=== PATIENT | male | born 1995 | race Caucasian/White ===

== ENCOUNTER 2024-05-23 12:59 | Outpatient (AMB) | payer OTHER, SELFPAY ==
--- NOTE | 2024-05-23 13:09 | AM.OFFWIN_ITS ---
Intake Vital Signs 05/23/24 13:11 Height 5 ft 6 in Weight 190 lb BMI 30.7 BP 112/67 Blood Pressure Location Lt brachial Position Sitting Pulse 86 Pulse Source Pulse Oximeter Pulse Oximetry (%) 97 Oxygen Delivery Method Room Air Intake Visit Reasons: est/ pink eye? left eye Intake Note: [place] eye, left side Patient Tobacco Use Status: Never used Tobacco Allergies cefdinir [From Omnicef] Allergy (Mild, Verified 05/23/24 13:20) Unknown Medication List - Last Reconciled 05/23/24 by Aubree Whitfield [employer]IDEO [employer]ODUCTION [employer]INE[employer]- clonidine HCl 0.2 mg PO BID lamotrigine 100 mg PO BID Do you need a note to return to daycare/school/sports/work: No HPI HPI Comments History of Present Illness Details 28 y/o developmentally delayed, nonverba l M here today w/ Alvin Becker who reports residential program concerned for pink eye Staff noticed patient itching his eyes yesterday along with some redness. Alvin becker reports that he has noticed him rubbing both of his eyes and redness of both eyes since yesterday when he picked him up from the program. This morning there was crusting to his eyelids and lashes associated with watery drainage. Denies overt trauma or injury, fever, chills. Awake alert Exam technically difficult as patient is physically combative and the stepdad has to hold his hands, I was able to check for PERRLA which was normal, no lid edema Sclera and conjunctiva injected bilat I was not able to physically touched the patient during the exam Plan Given the physical exam in the history we will treat him with an antibiotic drop. He should stay home from his residential program for 24 hours. He can return on May 25. Note given to StepDad at time of visit If this does not improve the symptoms, they should return to the office or follow up with primary care for additional follow up. [facility] Social History Patient Tobacco Use Status: Never used Tobacco Physical Exam Vital Signs: Last Vital Signs Pulse 86 05/23/24 13:11 BP 112/67 05/23/24 13:11 Pulse Ox 97 05/23/24 13:11 Oxygen Delivery Method Room Air 05/23/24 13:11 BMI result Body Mass Index 30.7 Assessment & Plan Assessment & Plan (1) Bacterial conjunctivitis of both eyes: Code(s): H10.9 - Unspecified conjunctivitis; B96.89 - Other specified bacterial agents as the cause of diseases classified elsewhere Plan: , Plan , Medications: New polymyxin B sulf-trimethoprim 10,000 unit- 1 mg/mL APPLY TO BOTH EYES while awake; do not exceed 6 doses in 24 hours 1 drp ophthalmic (eye) QID 5 days 10 mL 0RF Patient Instructions: Plan Given the physical exam in the history we will treat him with an antibiotic drop. He should stay home from his residential program for 24 hours. He can return on May 25. Note given to StepDad at time of visit If this does not improve the symptoms, they should return to the office or follow up with primary care for additional follow up. Put cold or warm wet cloths on your eye a few times a day if the eye hurts. Do not wear contact lenses or eye makeup until the pink eye is gone. Throw away any eye makeup you were using when you got pink eye. Clean your contacts and storage case. Wash bed linen after 24 hours of antibiotic eye drop use. Do not share eye drops. Use a clean towel to wash your face each day until symptoms are gone. This will help prevent recurrence. What is pink eye? [place] eye is a term people use to describe an infection or irritation of the eye. The medical term for pink eye is conjunctivitis. If you have pink eye, your eye (or eyes) might: ?Turn pink or red ?Weep or ooze a gooey liquid ?Become itchy or burn ?Get stuck shut, especially when you first wake up [place] eye can be caused by an infection, allergies, or an unknown irritation. Can you catch pink eye from someone else? Yes. When pink eye is caused by an infection, it can spread easily. Usually, people catch it from touching something that has been in contact with an infected person's eye. It can also be spread when an infected person touches someone else, and then that person touches their eye. If someone you know has pink eye, avoid touching their pillowcases, towels, or other personal items. When should I see a doctor or nurse? See your doctor or nurse if your eye hurts, or if you still have trouble seeing clearly after blinking. If you do not have these problems, but think you might have pink eye, your doctor or nurse might be able to give you advice over the phone. Can pink eye be treated? Most cases of pink eye go away on their own without treatment. But some types of pink eye can be treated. When pink eye is caused by infection, it is usually caused by a virus, so antibiotics will not help. Still, pink eye caused by a virus can last several days. ?[place] eye caused by an infection with bacteria can be treated with antibiotic eye drops, gel, or ointment. ?[place] eye caused by other problems can be treated with eye drops normally used to treat allergies. These drops will not cure the pink eye, but they can help with itchiness and irritation. When using eye drops for infection, do not touch your healthy eye after touching your infected eye. Also, do not touch the bottle or dropper directly onto 1 eye and then use it in the other. These things can cause the infection to spread from 1 eye to the other. If your eyelids feel swollen, it might also help to hold a cool wet cloth on the area. What if I wear contact lenses? If you wear contact lenses and you have symptoms of pink eye, it is really important to have a doctor look at your eyes. In people who wear contacts, the symptoms of pink eye can be caused by corneal abrasion. Corneal abrasion is a scratch on the eye and can be a serious problem. During treatment for eye infections, you might need to stop wearing your contacts for a short time. If your contacts are disposable, throw them away and use new ones. If your contacts are not disposable, you need to carefully clean them. You should also throw away your contact lens case and get a new one. When can I go back to work or school? If you have pink eye caused by an infection, remember that it can spread very easily. The best way to avoid spreading it is to stay away from other people until you no longer have symptoms. If this is not possible, wash your hands often (figure 1). It's also important to avoid touching your eyes and sharing items that could spread the infection. Schools and day cares usually have rules about when a child with pink eye can return. If a child has a bacterial infection, they will probably need to stay home until they have gotten antibiotic eye drops or ointment for 24 hours. Can pink eye be prevented? To keep from getting or spreading pink eye caused by an infection: ?Wash your hands often with soap and water. ?Try not to touch your eyes. ?Avoid sharing towels, bedding, or other personal items with a person who has pink eye. If your pink eye is caused by allergies, it might help to stay inside with the windows shut as much as possible during peak allergy seasons. What problems should I watch for? Call your doctor or nurse if: ?You have trouble seeing clearly after blinking. ?Your eye is still red or has drainage after 3 days. ?You have eye pain that is getting worse. Coding Level of Care Code Est Pt Level 4 (52116) Diagnoses Bacterial conjunctivitis of both eyes H10.9; B96.89
[2024-05-23 13:11] VITALS: BP 112/67; PULSE 86; O2SAT 97; BMI 30.7
== END 2024-05-23 13:29 | disposition home or self-care (01) ==
PROVIDERS: Visit Provider Nurse Practitioner Family
DX: H10.9 Unspecified conjunctivitis (principal); B96.89 Other specified bacterial agents as the cause of diseases classified elsewhere
CPT/HCPCS: 99214